=== PATIENT | male | born 1970 | race Caucasian/White ===

== ENCOUNTER 2019-05-13 17:32 | Emergency (ER) | payer SELFPAY ==
[~2019-05-13] VITALS: Ht 188 cm; Wt 108.9 kg
--- NOTE | 2019-05-13 17:43 | NUR ---
PT IS A/OX4, BIB RA88, C/O C/P. PER CATERING ASSOCIATE'S REPORT, PT FOUND NO RELIEF W/ 2 SPRAYS OF SUBLINGUAL NITRO AND 325 MG ASPIRIN PO ADMIN [employer]. 20G IV ACCESS IN L HAND ESTABLISHED BY GABRIELA. PT C/O L C/P THAT BEGAN SHORTLY AFTER A VERBAL ALTERCATION W/ HIS SPOUSE, SHARP IN QUALITY, RADIATES DOWN L ARM, 710, CONSTANT. VSS. PT DENIES SOB, N/V/D, DIZZINESS, HEADACHE.
[2019-05-13 17:53] LABS: BASOPHILS # (AUTO) 0.1 K/uL (0.0-8.0); BASOPHILS % (AUTO) 0.9 % (0.0-2.0); EOSINOPHILS # (AUTO) 0.1 K/uL (0.0-0.7); EOSINOPHILS % (AUTO) 0.4 % (0.0-7.0); HEMATOCRIT 47.1 % (36.7-47.1); HEMOGLOBIN 16.1 g/dL (12.5-16.3); LYMPHOCYTES % (AUTO) 22.5 % (20.5-51.5); MEAN CORPUSCULAR HEMOGLOBIN 32.1 uug (23.8-33.4); MEAN CORPUSCULAR HGB CONC 34 g/dL (32.5-36.3); MONOCYTES # (AUTO) 0.9 K/uL (2.0-10.0); MONOCYTES % (AUTO) 6.8 % (0.0-11.0); NEUTROPHILS # (AUTO) 9.1 K/uL (1.8-8.9); NEUTROPHILS % (AUTO) 69.4 % (38.5-71.5); PLATELET COUNT (AUTO) 268 K/uL (152-348); RED BLOOD CELL COUNT(AUTO) 5.01 MIL/uL (4.06-5.63); WHITE BLOOD COUNT (AUTO) 13.1 K/uL (3.6-10.2)
[2019-05-13 18:02] LABS: CREATININE 1.3 mg/dL (0.6-1.3); POTASSIUM 3.6 mmol/L (3.5-5.1)
[2019-05-13 18:08] LABS: BILIRUBIN,TOTAL 0.4 mg/dL (0.2-1.0); TOTAL PROTEIN, SERUM 6.8 g/dL (6.4-8.2)
[2019-05-13] MEDS ORDERED: LORAZEPAM 0.5 MG TABLET PO ONE (18:45)
[2019-05-13] MEDS ORDERED: LORAZEPAM 1 MG TABLET ONE (18:47)
--- NOTE | 2019-05-13 19:00 | NUR ---
SHIFT REPORT GIVEN TO SARA LEYVA
--- NOTE | 2019-05-13 19:05 | NUR ---
Patient in bed sleeping but easily arousable. Breathing even and unlabored. NAD noted
[2019-05-13] MEDS ORDERED: IBUPROFEN 600 MG TABLET ONE (21:41)
[2019-05-13] MEDS ORDERED: IBUPROFEN 600 MG TABLET PO ONE (21:45)
--- NOTE | 2019-05-13 21:48 | NUR ---
IV removed. Catheter intact and site benign. Pressure and 4x4 gauze applied to site. No bleeding noted. Patient discharged to home in stable conditon. Written and verbal after care instructions given. Patient verbalizes understanding of instructions. Patient ambulating with steady gait
[2019-05-13 21:50] VITALS: BP 121/77
== END 2019-05-13 21:48 | disposition home or self-care (01) ==
LOC: ER 17:32
DX: R07.9 Chest pain, unspecified (principal)
CPT/HCPCS: 36415; 70030-TC; 71045; 85025; 85610; 93005; A4663